=== PATIENT | female | born 1955 | race Caucasian/White ===

== ENCOUNTER → 2020-01-08 09:58 | Outpatient (CLI) | payer MEDICARE, SELFPAY | PROVIDERS: PCP Nurse Practitioner Family; Visit Provider Nurse Practitioner Family | DX: Z03.818 Encounter for observation for suspected exposure to other biological agents ruled out (principal) | CPT/HCPCS: U0003 ==

== ENCOUNTER 2021-08-06 08:00 | Outpatient (RCR) | payer MEDICARE, SELFPAY | END 2021-09-03 14:49 | disposition home or self-care (01) | LOC: PT.CARL 08:00 | PROVIDERS: PCP Nurse Practitioner Family; Visit Provider Family Medicine Sports Medicine | DX: M54.32 Sciatica, left side (principal); M70.62 Trochanteric bursitis, left hip | CPT/HCPCS: 97010; 97014; 97110; 97140; 97163; G0283 ==